=== PATIENT | female | born 1955 | race African-American/Black ===

== ENCOUNTER 2016-06-22 06:49 | Emergency (ER) | payer BC ==
[2016-06-22] MEDS ORDERED: IBUPROFEN 600 MG TABLET (FP) PO ONE ×2 (07:31→07:37)
--- NOTE | 2016-06-22 07:31 | PDOC ---
History of Present Illness - General Stated Complaint: RIGHT KNEE PAIN Time Seen by Provider: 06/22/16 07:20 History Source: Patient Exam Limitations: No Limitations - History of Present Illness Initial Comments: CHIEF COMPLAINT: 61 y/o afebrile female with PMH HTN, HLD, DM c/o atraumatic right knee pain since last night. HISTORY OF PRESENT ILLNESS: The patient states she isn't sure if she twisted her right knee incorrectly or what but since last night it's been painful to bend, especially painful going down stairs. She denies fall, trauma to knee, redness/warmth to affected knee, fever. REVIEW OF SYSTEMS: GENERAL/CONSTITUTIONAL: No fever/chills. No weakness. No weight change. GENITOURINARY: No dysuria, frequency, or change in urination. MUSCULOSKELETAL: +right knee pain. No neck or back pain. SKIN: No rash or easy bruising. NEUROLOGIC: No headache, vertigo, loss of consciousness, or loss of sensation. PHYSICAL EXAM: VITAL_SIGNS: within normal limits GENERAL_APPEARANCE: alert, cooperative, mild obvious discomfort. Pt ambulates with pain. MENTAL_STATUS: speech clear, oriented X 3, responds appropriately to questions. NEURO: motor intact and sensory intact in injured extremity. EXTREMITIES: Very minimal swelling to right medial knee joint with TTP of right medial joint line. No tibial plateau TTP. Negative Lachmann's test. No erythema, warmth or streaking to affected knee. SKIN: warm, dry, good color. Past History - Past Medical History Allergies/Adverse Reactions: Allergies Allergy/AdvReac Type Severity Reaction Status Date / Time metoprolol tartrate Allergy Verified 06/22/16 07:39 [From Lopressor] Penicillins Allergy Hives Verified 06/22/16 07:39 povidone-iodine Allergy Itching Verified 06/22/16 07:39 [From Betadine] soap [From Betadine] Allergy Itching Verified 06/22/16 07:39 Home Medications: Ambulatory Orders Aspirin [Baby Aspirin] 81 mg PO DAILY 08/24/11 Metformin HCl [Glucophage] 500 mg PO DAILY 08/24/11 Ramipril [Altace] 2.5 mg PO AM 08/24/11 Ascorbate Calcium [Vitamin C] 1,000 mg PO DAILY 12/19/14 Atorvastatin Ca [Lipitor -] 10 mg PO HS 12/19/14 Cholecalciferol (Vitamin D3) [Vitamin D-3] 1,000 unit PO DAILY 12/19/14 Cyanocobalamin [Vitamin B12 -] 3,000 mcg PO DAILY 12/19/14 Latanoprost 0.005% Eye Drops [Xalatan 0.005% Eye Drops -] 1 drop OP HS 12/19/14 Vitamin E 800 unit PO DAILY 12/19/14 Ibuprofen 600 mg PO Q6H #30 tablet 06/22/16 Anemia: No Asthma: No Cancer: No Cardiac Disorders: No CVA: No COPD: No CHF: No Dementia: No Diabetes: Yes GI Disorders: No Disorders: No HTN: Yes Hypercholesterolemia: Yes Liver Disease: No Seizures: No Thyroid Disease: No - Surgical History Abdominal Surgery: No Appendectomy: No Cardiac Surgery: Yes (cath) Cholecystectomy: No Lung Surgery: No Neurologic Surgery: No Orthopedic Surgery: No - Immunization History Immunization Up to Date: Yes - Psycho/Social/Smoking Cessation Hx Anxiety: No Suicidal Ideation: No Smoking Status: Yes Smoking History: Current every day smoker Number of Cigarettes Smoked Daily: 3 'Breaking Loose' booklet given: 11/23/11 Hx Alcohol Use: No Drug/Substance Use Hx: No Substance Use Type: None Medical Decision Making - Medical Decision Making A/P: 61 y/o female with right knee strain/meniscus tear. Plan is as follows: 1. PO Ibuprofen 2. GERALDINE bandage The patient was instructed to use GERALDINE bandage for comfort, apply ice as often as possible and take 600mg of Ibuprofen with food every 6 hours. Suggested she f/u with Dr. Quinn in 1 week if symptoms persist for MRI and possible physical therapy. Pt instructed to return to the ER with any worsening or concerning symptoms. The patient verbalizes understanding of all instructions, has no further questions and is awaiting discharge. *DC/Admit/Observation/Transfer Diagnosis at time of Disposition: Strain of right knee Qualifiers: Encounter type: initial encounter Qualified Code(s): S86.911A - Strain of unspecified muscle(s) and tendon(s) at lower leg level, right leg, initial encounter - Discharge Dispostion Disposition: HOME Condition at time of disposition: Stable - Referrals Referrals: Dennis Loza MD [Primary Care Provider] - Chang Quinn MD [Staff Physician] - 1 week - Patient Instructions Printed Discharge Instructions: DI for Knee Sprain, DI for Knee Pain, How To Perform RICE (Rest, Ice, Compress, Elevate) Additional Instructions: Discharge Instructions: -Take 600mg of Ibuprofen every 6 hours for pain with food -Follow RICE instructions and use GERALDINE bandage for comfort -Follow up with Dr. Quinn within 1 week -Return to the ER immediately with any worsening or concerning symptoms. - Post Discharge Activity Work/School Note: Back to Work
[2016-06-22 07:42] VITALS: BP 154/80; PULSE 62; TEMP 98.1; BMI 23.9
== END 2016-06-22 07:55 | disposition home or self-care (01) ==
LOC: JER 06:49
DX: S86.911A Strain of unspecified muscle(s) and tendon(s) at lower leg level, right leg, initial encounter (principal); I10 Essential (primary) hypertension; E11.9 Type 2 diabetes mellitus without complications; Z79.84 Long term (current) use of oral hypoglycemic drugs; E78.00 Pure hypercholesterolemia, unspecified; X58.XXXA Exposure to other specified factors, initial encounter; Y93.89 Activity, other specified; Y92.9 Unspecified place or not applicable
CPT/HCPCS: 99283-25

== ENCOUNTER 2017-03-02 17:49 | Emergency (ER) | payer BC ==
[2017-03-02 17:54] VITALS: BP 155/81; PULSE 78; TEMP 98.1; BMI 22.8
--- NOTE | 2017-03-02 19:03 | PDOC ---
History of Present Illness - General Chief Complaint: Injury Stated Complaint: ANKLE INJURY Time Seen by Provider: 03/02/17 18:48 History Source: Patient Exam Limitations: No Limitations - History of Present Illness Initial Comments: 03/02/17 19:20 states slid and twisted go Wednesday evening in an inversion fashion. States has been swollen and painful but not resolved using ice and elevation. Came for evaluation and x-ray. Denies numbness or tingling to toes, denies calf tenderness. 03/02/17 19:20 Occurred: reports: last week Severity: reports: mild, moderate Pain Location: reports: lower extremity (right ankle) Method of Injury: Yes: unknown Modifying Factors: improves with: cold therapy, pain medication Associated Symptoms (Fall): denies symptoms Past History - Travel Traveled outside of the country in the last 30 days: No Close contact w/someone who was outside of country & ill: No - Past Medical History Allergies/Adverse Reactions: Allergies Allergy/AdvReac Type Severity Reaction Status Date / Time metoprolol tartrate Allergy Verified 03/02/17 17:54 [From Lopressor] Penicillins Allergy Hives Verified 03/02/17 17:54 povidone-iodine Allergy Itching Verified 03/02/17 17:54 [From Betadine] soap [From Betadine] Allergy Itching Verified 03/02/17 17:54 Home Medications: Ambulatory Orders Aspirin [Baby Aspirin] 81 mg PO DAILY 08/24/11 Metformin HCl [Glucophage] 500 mg PO DAILY 08/24/11 Ramipril [Altace] 2.5 mg PO AM 08/24/11 Ascorbate Calcium [Vitamin C] 1,000 mg PO DAILY 12/19/14 Atorvastatin Ca [Lipitor -] 10 mg PO HS 12/19/14 Cholecalciferol (Vitamin D3) [Vitamin D-3] 1,000 unit PO DAILY 12/19/14 Cyanocobalamin [Vitamin B12 -] 3,000 mcg PO DAILY 12/19/14 Vitamin E 800 unit PO DAILY 12/19/14 Ibuprofen 600 mg PO Q6H #30 tablet 06/22/16 Anemia: No Asthma: No Cancer: No Cardiac Disorders: No CVA: No COPD: No CHF: No Dementia: No Diabetes: Yes GI Disorders: No Disorders: No HTN: Yes Hypercholesterolemia: Yes Liver Disease: No Seizures: No Thyroid Disease: No - Surgical History Abdominal Surgery: No Appendectomy: No Cardiac Surgery: Yes (cath) Cholecystectomy: No Lung Surgery: No Neurologic Surgery: No Orthopedic Surgery: No - Immunization History Immunization Up to Date: Yes - Suicide/Smoking/Psychosocial Hx Smoking Status: Yes Smoking History: Current every day smoker Have you smoked in the past 12 months: Yes Number of Cigarettes Smoked Daily: 5 Information on smoking cessation initiated: Yes 'Breaking Loose' booklet given: 03/02/17 Hx Alcohol Use: No Drug/Substance Use Hx: No Substance Use Type: None Trauma Specific PMHX - Complaint Specific PMHX Back Injury: No Neck Injury: No Review of Systems - Review of Systems Able to Perform ROS?: Yes Is the patient limited Bulgarian proficient: Yes Constitutional: Yes: Symptoms Reported, See HPI HEENTM: Yes: See HPI. No: Symptoms Reported Respiratory: No: Symptoms reported Cardiac (ROS): No: Symptoms Reported ABD/GI: No: Symptoms Reported Musculoskeletal: Yes: Symptoms Reported, See HPI, Joint Pain, Joint Swelling, Joint Stiffness Integumentary: Yes: Symptoms Reported, See HPI, Bruising Neurological: No: Symptoms reported (right ankle), Numbness All Other Systems: Reviewed and Negative *Physical Exam - Vital Signs Last Vital Signs Temp Pulse Resp BP Pulse Ox 98.1 F 78 18 155/81 99 03/02/17 17:51 03/02/17 17:51 03/02/17 17:51 03/02/17 17:51 03/02/17 17:51 - Physical Exam General Appearance: Yes: Nourished, Appropriately Dressed, Apparent Distress HEENT: positive: SANKET, Normal ENT Inspection, TMs Normal Neck: positive: Tender, Supple. negative: Lymphadenopathy (R) Respiratory/Chest: positive: Chest Tender, Lungs Clear Musculoskeletal: positive: Normal Inspection, CVA Tenderness Extremity: positive: Normal Capillary Refill, Normal Inspection. negative: Normal Range of Motion (difficult to flex and extend at ankle, has tenderness to medial and lateral malleolus, negative squeeze test. Neurovascular intact to foot but has significant swelling and ecchymoses noted to midfoot and extending past ankle joint.) Integumentary: positive: Swelling, Ecchymosis (patient taking aspirin), Bruising. negative: Normal Color Neurologic: positive: snath handle assembler II-XII NML intact, Fully Oriented, Alert, Normal Mood/ Affect, Normal Response, Motor Strength 5/5 ED Treatment Course - RADIOLOGY Radiology Studies Ordered: Category Date Time Status ANKLE-RIGHT [RAD] Stat Radiology 03/02/17 18:28 Taken Progress Note - Progress Note Progress Note: X-ray negative for fractures or dislocations. Patient refuses Aircast. Raymond wrap applied and provided crutches with 2 Percocet tablets for pain relief. Will follow-up with her orthopedist in one to 2 days for reevaluation. Medical Decision Making - Medical Decision Making 03/02/17 19:04 Ankle sprain, no evidence of fracture dislocation and x-ray. Patient takes aspirin therefore swelling and ecchymoses more severe. Raymond wrap applied, patient refuses Aircast or crutches. Follow-up with orthopedist *DC/Admit/Observation/Transfer Diagnosis at time of Disposition: Ankle sprain Qualifiers: Encounter type: initial encounter Involved ligament of ankle: other ligament Laterality: right Qualified Code(s): S93.491A - Sprain of other ligament of right ankle, initial encounter; S93.491A - Sprain of other ligament of right ankle, initial encounter - Discharge Dispostion Disposition: HOME Condition at time of disposition: Stable Admit: No - Referrals Referrals: Dennis Loza MD [Primary Care Provider] - Chang Quinn MD [Staff Physician] - - Patient Instructions Printed Discharge Instructions: DI for Ankle Sprain Additional Instructions: Rest, ice to area on and off for 15 minutes 4-6 times a day Avoid heavy lifting or exercise until pain and swelling is resolved or until further directed Keep area highly elevated to reduce swelling Use splints/Raymond wrap as directed Followup with orthopedist in one to 2 days if not improving, if significantly improved may wait one week for followup with orthopedist May use ibuprofen 2-200 mg tablets every 6 hours as needed for pain - Post Discharge Activity Forms/Work/School Notes: Back to Work
== END 2017-03-02 19:29 | disposition home or self-care (01) ==
LOC: JERFT 17:49
DX: S93.491A Sprain of other ligament of right ankle, initial encounter (principal); I10 Essential (primary) hypertension; E78.00 Pure hypercholesterolemia, unspecified; E11.9 Type 2 diabetes mellitus without complications; F17.210 Nicotine dependence, cigarettes, uncomplicated; Z79.84 Long term (current) use of oral hypoglycemic drugs; Z88.0 Allergy status to penicillin; Z88.8 Allergy status to other drugs, medicaments and biological substances; Z91.018 Allergy to other foods; Z79.82 Long term (current) use of aspirin; X50.0XXA Overexertion from strenuous movement or load, initial encounter; Y93.9 Activity, unspecified; Y92.9 Unspecified place or not applicable
CPT/HCPCS: 73610-TC-RT; 99281-25

== ENCOUNTER 2018-09-12 10:26 | Emergency (ER) | payer BC ==
[2018-09-12 10:41] VITALS: BP 154/79; PULSE 70; TEMP 97.8; BMI 24.0
--- NOTE | 2018-09-12 11:08 | PDOC ---
History of Present Illness - General Chief Complaint: Injury Stated Complaint: LT. BODY PAIN/ FALL Time Seen by Provider: 09/12/18 10:50 History Source: Patient Exam Limitations: No Limitations Past History - Travel Traveled outside of the country in the last 30 days: No Close contact w/someone who was outside of country & ill: No - Past Medical History Allergies/Adverse Reactions: Allergies Allergy/AdvReac Type Severity Reaction Status Date / Time metoprolol tartrate Allergy Verified 09/12/18 10:39 [From Lopressor] Penicillins Allergy Hives Verified 09/12/18 10:39 povidone-iodine Allergy Itching Verified 09/12/18 10:39 [From Betadine] soap [From Betadine] Allergy Itching Verified 09/12/18 10:39 Home Medications: Ambulatory Orders Aspirin [Baby Aspirin] 81 mg PO DAILY 08/24/11 Metformin HCl [Glucophage] 500 mg PO DAILY 08/24/11 Ramipril [Altace] 2.5 mg PO AM 08/24/11 Ascorbate Calcium [Vitamin C] 1,000 mg PO DAILY 12/19/14 Atorvastatin Ca [Lipitor -] 10 mg PO HS 12/19/14 Cholecalciferol (Vitamin D3) [Vitamin D-3] 1,000 unit PO DAILY 12/19/14 Cyanocobalamin [Vitamin B12 -] 3,000 mcg PO DAILY 12/19/14 Vitamin E 800 unit PO DAILY 12/19/14 Ibuprofen 600 mg PO Q6H #30 tablet 06/22/16 Anemia: No Asthma: No Cancer: No Cardiac Disorders: No CVA: No COPD: No CHF: No Dementia: No Diabetes: Yes GI Disorders: No Disorders: No HTN: Yes Hypercholesterolemia: Yes Liver Disease: No Seizures: No Thyroid Disease: No - Surgical History Abdominal Surgery: No Appendectomy: No Cardiac Surgery: Yes (cath) Cholecystectomy: No Lung Surgery: No Neurologic Surgery: No Orthopedic Surgery: No - Immunization History Immunization Up to Date: Yes - Suicide/Smoking/Psychosocial Hx Smoking Status: Yes Smoking History: Current every day smoker Have you smoked in the past 12 months: Yes Number of Cigarettes Smoked Daily: 5 Information on smoking cessation initiated: No 'Breaking Loose' booklet given: 03/02/17 Hx Alcohol Use: No Drug/Substance Use Hx: No Substance Use Type: None Review of Systems - Review of Systems Able to Perform ROS?: Yes Comments:: 09/12/18 11:15 CONSTITUTIONAL: Absent: fever, chills, diaphoresis, generalized weakness, malaise, loss of appetite HEENT: Absent: rhinorrhea, nasal congestion, throat pain, throat swelling, difficulty swallowing, mouth swelling, ear pain, eye pain, visual Changes CARDIOVASCULAR: Absent: chest pain, loss of consciousness, palpitations, irregular heart rate, peripheral edema RESPIRATORY: Absent: cough, shortness of breath, dyspnea with exertion, orthopnea, wheezing, stridor, hemoptysis GASTROINTESTINAL: Absent: abdominal pain, abdominal distension, nausea, vomiting, diarrhea, constipation, melena, hematochezia GENITOURINARY: Absent: dysuria, frequency, urgency, hesitancy, hematuria, flank pain, genital pain MUSCULOSKELETAL: Present: low back pain Absent: myalgia, arthralgia, joint swelling SKIN: Absent: rash, itching, pallor HEMATOLOGIC/IMMUNOLOGIC: Absent: easy bleeding, easy bruising, lymphadenopathy, frequent infections ENDOCRINE: Absent: unexplained weight gain, unexplained weight loss, heat intolerance, cold intolerance NEUROLOGIC: Absent: headache, focal weakness or paresthesias, dizziness, unsteady gait, seizure, mental status changes, bladder or bowel incontinence PSYCHIATRIC: Absent: anxiety, depression, suicidal or homicidal ideation, hallucinations. Is the patient limited Bahraini proficient: No *Physical Exam - Vital Signs Last Vital Signs Temp Pulse Resp BP Pulse Ox 97.8 F 70 17 154/79 99 09/12/18 10:39 09/12/18 10:39 09/12/18 10:39 09/12/18 10:39 09/12/18 10:39 - Physical Exam Comments: 09/12/18 11:25 GENERAL: Well developed, well nourished. Awake and alert. No acute distress. MUSCULOSKELETAL Point tenderness with minimal swelling over S1 with associated pain radiating into the L gluteus halie. Normal range of motion at all joints. No CVA tenderness. EXTREMITIES: No cyanosis. No clubbing. No edema. No calf tenderness. SKIN: Warm and dry. Normal capillary refill. No rashes. No jaundice. NEUROLOGICAL: Alert, awake, appropriate. Cranial nerves 2-12 intact. No deficits to light touch and temperature in face, upper extremities and lower extremities. No motor deficits in the in face, upper extremities and lower extremities. Normoreflexic in the upper and lower extremities. Normal speech. Toes are down- going bilaterally. Gait is normal without ataxia. PSYCHIATRIC: Cooperative. Good eye contact. Appropriate mood and affect. Medical Decision Making - Medical Decision Making 09/12/18 11:26 The patient is a 63-year-old female with past medical history of night terrors, hypertension, on aspirin who presents to the ER today for low back pain status post fall out of bed this morning. Patient states that she was having a nightmare where she was being attacked by a snow leopard. She states that she jumped in her drain and she believes that's why she fell out of the bed. She states that she currently has pain over her sacrum and that hurts when she sits down. Denies numbness and tingling down the extremity, weakness to the left extremity, saddle anesthesia, bladder/bowel incontinence, LOC and head trauma. A/P: Sacral pain On exam point tenderness to S1 at the midline Pain radiates to the left gluteus halie without radiating down the left leg. We'll rule out fracture at this time. Toradol given for pain Reevaluate 09/12/18 14:27 No fractures of the sacrum on x-ray Head CT negative for subdural hematoma Pain relief with Toradol DC home with PCP follow up I discussed the physical exam findings, ancillary test results and final diagnoses with the patient. I answered all of the patient's questions. The patient was satisfied with the care received and felt comfortable with the discharge plan and treatment plan. The Patient agrees to follow up with the primary care physician/specialist within 24-72 hours. Return precautions were given. *DC/Admit/Observation/Transfer Diagnosis at time of Disposition: Low back pain Qualifiers: Chronicity: acute Back pain laterality: midline Sciatica presence: without sciatica Qualified Code(s): M54.5 - Low back pain - Discharge Dispostion Disposition: HOME Condition at time of disposition: Stable Decision to Admit order: No - Referrals Referrals: Chang Quinn MD [Staff Physician] - - Patient Instructions Printed Discharge Instructions: DI for Low Back Pain Additional Instructions: You were evaluated for your back pain today You may take Motrin 600 mg every 6 hours starting tonight before bed as needed for pain. Your x-rays were negative for broken bones. Your head CT was normal. If you have pain while sitting you may purchase a donut pillow at the pharmacy to offset the weight Please follow up with orthopedics if her symptoms do not improve within 5-7 days. Return to the ER for worsening pain, numbness and tingling down the extremities , numbness in her groin, loss of bladder or bowel function, or if you have any changes in your symptoms. - Post Discharge Activity Forms/Work/School Notes: Back to Work
[2018-09-12] MEDS ORDERED: KETOROLAC TROMETHAMINE 60 MG/2 ML VIAL IM ONE (11:15)
[2018-09-12] MEDS ORDERED: KETOROLAC TROMETHAMINE 60 MG/2 ML VIAL ONE (11:26)
== END 2018-09-12 16:30 | disposition home or self-care (01) ==
LOC: JER 10:26
PROC: 3E0233Z Introduction of Anti-inflammatory into Muscle, Percutaneous Approach (ICD-10-PCS; principal; 2018-09-12)
DX: M54.5 Low back pain (principal); W06.XXXA Fall from bed, initial encounter; Y93.84 Activity, sleeping; Y92.032 Bedroom in apartment as the place of occurrence of the external cause; Y99.8 Other external cause status; F51.4 Sleep terrors [night terrors]; I10 Essential (primary) hypertension; E78.00 Pure hypercholesterolemia, unspecified; E11.9 Type 2 diabetes mellitus without complications; Z79.84 Long term (current) use of oral hypoglycemic drugs; Z79.82 Long term (current) use of aspirin
CPT/HCPCS: 70450-TC; 72100-TC-FY; 73523-TC-FY; 99282-25

== ENCOUNTER 2019-02-20 13:44 | Emergency (ER) | payer BC ==
[2019-02-20 13:53] VITALS: BP 159/91; PULSE 66; TEMP 98; BMI 23.9
--- NOTE | 2019-02-20 13:55 | PDOC ---
Rapid Medical Evaluation Chief Complaint: Edema Time Seen by Provider: 02/20/19 13:48 Medical Evaluation: Allergies Allergy/AdvReac Type Severity Reaction Status Date / Time metoprolol tartrate Allergy Verified 09/12/18 10:39 [From Lopressor] Penicillins Allergy Hives Verified 09/12/18 10:39 povidone-iodine Allergy Itching Verified 09/12/18 10:39 [From Betadine] soap [From Betadine] Allergy Itching Verified 09/12/18 10:39 02/20/19 13:49 CC: right hand pain PE: swelling and tenderness to palmar surface or right hand over 4th and 5th metacarpals Orders: xray, motrin Pt will proceed to ER for further evaluation. Discharge Disposition - Diagnosis Right hand pain - Referrals - Patient Instructions - Post Discharge Activity
--- NOTE | 2019-02-20 14:15 | PDOC ---
History of Present Illness - General Chief Complaint: Edema Stated Complaint: swollen rt hand Time Seen by Provider: 02/20/19 13:48 - History of Present Illness Initial Comments: 02/20/19 14:10 64 y/o F w/PMH f DM, HTN Lipids presents for evaluation of L wrist swelling and tenderness x2 days Past History - Past Medical History Allergies/Adverse Reactions: Allergies Allergy/AdvReac Type Severity Reaction Status Date / Time metoprolol tartrate Allergy Verified 02/20/19 13:54 [From Lopressor] Penicillins Allergy Hives Verified 02/20/19 13:54 povidone-iodine Allergy Itching Verified 02/20/19 13:54 [From Betadine] soap [From Betadine] Allergy Itching Verified 02/20/19 13:54 Home Medications: Ambulatory Orders Aspirin [Baby Aspirin] 81 mg PO DAILY 08/24/11 Metformin HCl [Glucophage] 500 mg PO DAILY 08/24/11 Ramipril [Altace] 2.5 mg PO AM 08/24/11 Ascorbate Calcium [Vitamin C] 1,000 mg PO DAILY 12/19/14 Atorvastatin Ca [Lipitor -] 10 mg PO HS 12/19/14 Cholecalciferol (Vitamin D3) [Vitamin D-3] 1,000 unit PO DAILY 12/19/14 Cyanocobalamin [Vitamin B12 -] 3,000 mcg PO DAILY 12/19/14 Vitamin E 800 unit PO DAILY 12/19/14 Ibuprofen 600 mg PO Q6H #30 tablet 06/22/16 Anemia: No Asthma: No Cancer: No Cardiac Disorders: No CVA: No COPD: No CHF: No Dementia: No Diabetes: Yes GI Disorders: No Disorders: No HTN: Yes Hypercholesterolemia: Yes Liver Disease: No Seizures: No Thyroid Disease: No - Surgical History Abdominal Surgery: No Appendectomy: No Cardiac Surgery: Yes (cath) Cholecystectomy: No Lung Surgery: No Neurologic Surgery: No Orthopedic Surgery: No - Immunization History Immunization Up to Date: Yes - Psycho Social/Smoking Cessation Hx Smoking Status: Yes Smoking History: Former smoker Have you smoked in the past 12 months: Yes Number of Cigarettes Smoked Daily: 5 Information on smoking cessation initiated: Yes 'Breaking Loose' booklet given: 03/02/17 Hx Alcohol Use: No Drug/Substance Use Hx: No Substance Use Type: None Review of Systems - Review of Systems Constitutional: No: Fever Musculoskeletal: Yes: Joint Pain *Physical Exam - Vital Signs Last Vital Signs Temp Pulse Resp BP Pulse Ox 98 F 66 16 159/91 100 02/20/19 13:48 02/20/19 13:48 02/20/19 13:48 02/20/19 13:48 02/20/19 13:48 - Physical Exam Comments: 02/20/19 14:11 R wrist skin color and temperature are normal. There is full no painful ROM. There is an area of tenderness about the volar aspect of the palmar surface of the wrist. There is a fullness in that area without fluctuance, overlying warmth , induration, or sensitivity. There are not gross sensory or motor deficits NVID Medical Decision Making - Medical Decision Making 02/20/19 14:13 The fullness described has the feel of a lipoma. No emergence intervention will refer to hand Discharge - Discharge Information Problems reviewed: Yes Clinical Impression/Diagnosis: Right hand pain Condition: Stable Disposition: HOME - Admission No - Follow up/Referral Referrals: Earle Phan MD [Staff Physician] - - Patient Discharge Instructions Additional Instructions: Without fail, please follow up with Dr Phan from hand surgery for further evaluation and treatment options in 1-2 days. Return to the Emergency Room for worsening symptoms. - Post Discharge Activity
[2019-02-20] MEDS ORDERED: IBUPROFEN 600 MG TABLET (FP) PO ONE (14:16)
[2019-02-20] MEDS: IBUPROFEN 600 MG TABLET (FP) PO ONE ×2 (14:17→14:18)
== END 2019-02-20 14:34 | disposition home or self-care (01) ==
LOC: JERFT 13:44
DX: M79.641 Pain in right hand (principal); I10 Essential (primary) hypertension; E78.5 Hyperlipidemia, unspecified; E78.00 Pure hypercholesterolemia, unspecified; E11.9 Type 2 diabetes mellitus without complications; Z79.84 Long term (current) use of oral hypoglycemic drugs; Z88.0 Allergy status to penicillin; Z88.8 Allergy status to other drugs, medicaments and biological substances
CPT/HCPCS: 99281-25

== ENCOUNTER 2019-07-04 04:57 | Day surgery (SDC) | payer BC ==
[2019-06-29 15:49] VITALS: BMI 23.9
--- NOTE | 2019-07-04 07:54 | HP ---
History & Physical Update - Physical Physical: No Change - Assessment Assessment: No Change - Plan Plan: No Change (H&P reviwed , no changes , for cystorectocele repair , sling procedure)
[2019-07-04] MEDS ORDERED: VASOPRESSIN 20 UNITS/ML VIAL IV ONE (09:58)
[2019-07-04] MEDS ORDERED: MIDAZOLAM HCL 2 MG/2 ML SINGLE DOSE VIAL ONE (10:02)
[2019-07-04] MEDS ORDERED: PROPOFOL 20 ML ONE (10:02)
[2019-07-04] MEDS ORDERED: CLINDAMYCIN PHOSPHATE 600 MG/4 ML VIAL ONE (10:20)
[2019-07-04] MEDS ORDERED: DEXAMETHASONE SOD PHOSPHATE 4 MG/1 ML VIAL ONE (10:32)
[2019-07-04] MEDS ORDERED: CLINDAMYCIN 600 MG PREMIX BAG IVPB ONE (10:37)
[2019-07-04] MEDS ORDERED: LIDOCAINE HCL 1%, 10 MG/ML (20ML VIAL) ONE (10:54)
[2019-07-04] MEDS ORDERED: LIDOCAINE 1%/EPI 1:100000 (20 ML MULTI DOSE VIAL) IJ ONE (11:03)
--- NOTE | 2019-07-04 11:11 | OP ---
Operative Note - Note: Operative Date: 07/04/19 Pre-Operative Diagnosis: Urinary incontinence Post-Operative Diagnosis: Same as Pre-op Surgeon: Smooth Martinez MD. Anesthesia: General Operative Report Dictated: Yes
[2019-07-04] MEDS ORDERED: metroNIDAZOLE 0.75% VAGINAL GEL 70 GM TUBE VG ONE (11:21)
[2019-07-04] MEDS ORDERED: ACETAMINOPHEN INJECTION 100 ML IVPB ONE (11:39)
[2019-07-04] MEDS ORDERED: ACETAMINOPHEN 1000 MG/100 ML VIAL (NON FORMULARY) IVPB ONE ×2 (11:40→11:42)
[2019-07-04] MEDS ORDERED: ONDANSETRON 4 MG/2 ML VIAL IVPUSH PRN ×2 (11:41→12:27)
[2019-07-04] MEDS ORDERED: oxyCODONE HCL 5 MG TABLET PO PRN ×2 (11:41→12:27)
--- NOTE | 2019-07-04 12:26 | OP ---
Operative Note - Note: Operative Date: 07/04/19 Pre-Operative Diagnosis: cystocele, rectocele , stress incontience Operation: cystorectocele repair , pernioplasty Findings: cystorectocele. gaaping vaginal interetous Post-Operative Diagnosis: Same as Pre-op Surgeon: Fortunato Angel Anesthesiologist/[employer]: Susie Romero Anesthesia: General Specimens Removed: ant. and post. vaginal mucosa Estimated Blood Loss (mls): 50 Drains & Tubes with Location: [place]. vaginal packing Blood Volume Replaced (mls): 0 Operative Report Dictated: Yes
[2019-07-04] MEDS ORDERED: IBUPROFEN 600 MG TABLET (FP) PO PRN (12:27)
[2019-07-04] MEDS ORDERED: IBUPROFEN 800 MG/8 ML IJ IVPB PRN (12:27)
[2019-07-04] MEDS ORDERED: ELECTROLYTE-148 SOLN 1,000 ML IV SCH (12:30)
[2019-07-04] MEDS ORDERED: IBUPROFEN 800 MG/8 ML IJ IVPB ONE ×2 (13:20→13:32)
--- NOTE | 2019-07-04 13:20 | PN ---
Progress Note (short form) - Note Progress Note: was called to see patient in recovery room , post op , cystorectocelerepair, pernioplasty, suburethral sling . c/o excess post op pain , abdomen and suprapubic pain ,not relived with pain meds nurse noted abdominal distension . no active vaginal bleeding , has packing in vagina , [place] cath clear urine 300cc Last Vital Signs Temp Pulse Resp BP Pulse Ox 97.7 F 63 18 180/91 H 100 07/04/19 11:30 07/04/19 12:15 07/04/19 12:15 07/04/19 12:15 07/04/19 12:15 c/o of pain abdomen soft, mild distension, no rebound , no rigidity no cva vagina packing stain with dark blood , no vaginal bleeding seen severe post op pain etiology not known . will get CT Scan of pelvic and abdomen , revaluate
[2019-07-04 13:39] LABS: BASO % 1.2 % (0-2.0); EOS % 0.3 % (0-4.5); HEMATOCRIT 41.4 % (32.4-45.2); HEMOGLOBIN 13.9 GM/dL (10.7-15.3); MCH 31.4 pg (25.7-33.7); MCHC 33.6 g/dl (32.0-36.0); MEAN CELL VOLUME 93.6 fl (80-96); MEAN PLT VOLUME 7.5 fl (7.5-11.1); MONO % 2.5 % (3.8-10.2); PLATELET COUNT 379 K/MM3 (134-434); RBC 4.42 M/mm3 (3.60-5.2); RDW 14.1 % (11.6-15.6); WHITE BLOOD COUNT 10.9 K/mm3 (4.0-10.0)
[2019-07-04] MEDS ORDERED: ONDANSETRON 4 MG/2 ML VIAL IVPUSH ONE (13:45)
[2019-07-04] MEDS ORDERED: HYDROmorphone HCl 2 MG/ML VIAL IVPUSH ONE ×2 (13:46→14:00)
[2019-07-04] MEDS ORDERED: ONDANSETRON 4 MG/2 ML VIAL ONE (13:46)
[2019-07-04] MEDS ORDERED: HYDROmorphone HCl 2 MG/ML VIAL ONE (14:00)
[2019-07-04 14:46] LABS: ALBUMIN 3.6 g/dl (3.4-5.0); BLOOD UREA NITROGEN 7.3 mg/dL (7-18); CALCIUM 9.1 mg/dL (8.5-10.1); CREATININE 0.6 mg/dL (0.55-1.3); POTASSIUM 4.4 mmol/L (3.5-5.1)
[2019-07-04 14:47] LABS: BILIRUBIN,TOTAL 0.4 mg/dL (0.2-1); TOT PROT 6.9 g/dl (6.4-8.2)
[2019-07-04] MEDS ORDERED: HYDROmorphone HCl 2 MG/ML VIAL IVPB PRN (15:01)
[2019-07-04] MEDS ORDERED: ATORVASTATIN CA 10 MG TABLET (FP) PO SCH (15:45)
[2019-07-04] MEDS ORDERED: LATANOPROST 0.005% OPHTH SOLN 2.5ML BOTTLE OD SCH (22:00)
--- NOTE | 2019-07-04 22:58 | OP ---
DATE OF OPERATION: 07/04/2019 PREOPERATIVE DIAGNOSIS: Urinary incontinence. POSTOPERATIVE DIAGNOSIS: Urinary incontinence. PROCEDURE: Midurethral sling placement. Please refer to Dr. Angel's portion of the [employer] component of this procedure. BRIEF HISTORY: A 64-year-old female to undergo cystocele, rectocele repair with unaware incontinence. Also some mild stress urinary incontinence. Preoperative evaluation determined and confirmed the above. It is recommended for midurethral sling at the time of [employer] surgery. Risks and benefits of treatment, alternative treatments discussed in detail. All questions were answered. Risk of reversion, reoperation, bleeding, infection, and persistent incontinence were all discussed with the patient. BRIEF OPERATIVE NOTE: The patient is brought in the operating room. Dr. Angel performed the early portion of his procedure. At this time, a timeout was performed, and I entered the room. A Cantrell catheter was placed to suction drainage. The area approximately 1 cm proximal to the meatus was anesthetized with 1% lidocaine with epinephrine. A small amount of vasopressor was also injected. At this time, using a 15-blade scalpel, anterior vaginal wall was incised. Using sharp dissection, the anterior vaginal wall was dissected free from the periurethral tissue. Space was created both bilaterally on periurethral tissue to expose the obturator foramen. This was accomplished bilaterally without difficulty. At this time, an Altis sling was placed through first the right foramen and then using careful attention to be sure the sling was not kinked or bunched, the contralateral side was placed in the position to the obturator foramen. It was cinched up and using a tonsil it was snug in that tight position. bleeding. The incision was closed using a running 2-0 Vicryl. A Cantrell was left to straight drainage. The Dr. Angel was to finish the latter component of this procedure. Please refer to his note again. CHING CLEVELAND M.D. [id number]
[2019-07-05 08:58] VITALS: BP 169/74; PULSE 70; TEMP 97.7
[2019-07-05] MEDS ORDERED: RAMIPRIL 2.5 MG CAPSULE (FP) PO SCH (10:00)
--- NOTE | 2019-07-06 16:26 | PN ---
Progress Note (short form) - Note Progress Note: 07/05/19 845 am sitting on chair, no c/o , huddleston clear urine , no vaginal bleeding, passing gas , no pain Last Vital Signs Temp Pulse Resp BP Pulse Ox 97.7 F 70 18 169/74 100 07/05/19 08:57 07/05/19 08:57 07/05/19 08:57 07/05/19 08:57 07/04/19 21:00 CBC, BMP 07/04/19 13:15 07/04/19 13:15 abdomen soft, no cva , non tender no calf tenderness lochia no bleeding plan d/c huddleston , if voids d/c home vaginal packing removed
--- NOTE | 2019-07-06 17:59 | OP ---
DATE OF OPERATION: 07/04/2019 PREOPERATIVE DIAGNOSIS: Cystocele, rectocele, and urinary incontinence. POSTOPERATIVE DIAGNOSIS: Cystocele, rectocele, and urinary incontinence. PROCEDURE: For Dr. Angel; cystocele repair, rectocele repair, and perineoplasty. Dr. Martinez did suburethral sling procedure. OPERATION: Patient was taken to the operating room under general anesthesia. In dorsal lithotomy position, examination under anesthesia revealed external genitalia to be normal. Vagina was gaping. There was an enlarged cystocele protruding through the vaginal introitus, and there was also a rectocele. The cervix was normal grossly. Uterus was normal size. Adnexa, no masses were palpated. Then anterior and posterior vaginal mucosa were infiltrated with a dilute solution of vasopressin and then anterior vaginal mucosa was opened in midline and then undermined and then cut in the midline. Then bladder was from the vaginal mucosa with sharp and blunt dissection. After complete dissection, with 3-0 Vicryl suture, the cystocele was reduced in the pursestring suture. Then several mattress sutures were placed over the bladder wall for reinforcement. Excess vaginal mucosa was cut, and the vaginal mucosa was repaired with interrupted suture of the 3-[address] Martinez did suburethral sling, which he will dictate his operative report. Then after completion of his procedure then posterior vaginal mucosa was infiltrated with vasopressin and then posterior vaginal mucosa was cut with a knife and then vaginal mucosa was grasped with an Allis clamp, and the posterior vaginal mucosa was from the rectum. Then the cystocele was repaired with interrupted mattress suture of 2-0 Vicryl and then reinforced with 3-0 Vicryl interrupted suture. Then perineum muscle was dissected and then brought together with interrupted suture of 0 Vicryl and then the posterior vaginal mucosa and the perineum was repaired in an episiotomy-like fashion with 2-0 Vicryl and 3-0 Vicryl. No active bleeding was seen. Cantrell catheter was inserted and was clear urine. Then the vagina was packed with plain gauze and MetroGel. Patient tolerated the procedure well. Left the OR in good condition. Rectal exam showed no defect or no . Dionne [id number]
--- NOTE | 2019-07-06 18:46 | PATH ---
Surgical Pathology Report Patient Name: MIKY AUGUSTIN Med. Rec. #: [id number] /Age/Gender: 1955 (Age: 64) / F Account: [id number] Location: AMBULATORY SURG Taken: 07/04/2019 Received: 07/04/2019 Reported: 07/06/2019 Physicians: Fortunato Angel M.D. Specimen(s) Received A: ANTERIOR VAGINAL MUCOSA B: POSTERIOR VAGINAL MUCOSA Clinical History Urinary incontinence Final Diagnosis A. ANTERIOR VAGINAL MUCOSA, EXCISION: PORTION OF SQUAMOUS MUCOSA WITH MILD CHRONIC INFLAMMATION. Comment: Immunohistochemical stained slides (block A1) demonstrate the squamous epithelium is positive for p40 in the basal layer, while negative for Melan A and HMB 45. No evidence of melanocytic proliferation. Immunohistochemical stains performed at [place], [place] ([id number]) and interpreted at [facility]. Positive and negative controls (internal if applicable) show appropriate results. B. POSTERIOR VAGINAL MUCOSA, EXCISION: PORTION OF SQUAMOUS MUCOSA WITH CHRONIC INFLAMMATION. Electronically Signed Ramon Pat M.D. Gross Description A. Received in formalin labeled "anterior vaginal mucosa," are 3 pink-mena, unoriented portion of mucosal tissue ranging from 0.7 x 0.5 x 0.3 cm to 2.5 x 0.5 x 0.4 cm. No discrete lesions are identified. 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 B. Received in formalin labeled "posterior vaginal mucosa," is a 3.0 x 0.5 cm mena-brown, unoriented portion of skin. No discrete lesions are identified. 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 /07/04/2019 [facility]/07/04/2019
== END 2019-07-05 12:40 | disposition home or self-care (01) ==
LOC: JASU-SURG 04:57 → JASUSAT 04:57 → J3W 15:38 → JASUSAT 07-05 12:40
PROVIDERS: ATTEND Obstetrics & Gynecology
PROC: 0KQM0ZZ Repair Perineum Muscle, Open Approach (ICD-10-PCS; 2019-07-04)
PROC: 0TSD0ZZ Reposition Urethra, Open Approach (ICD-10-PCS; 2019-07-04)
PROC: 0JQC0ZZ Repair Pelvic Region Subcutaneous Tissue and Fascia, Open Approach (ICD-10-PCS; principal; 2019-07-04 10:07)
PROC: 0JQC0ZZ Repair Pelvic Region Subcutaneous Tissue and Fascia, Open Approach (ICD-10-PCS; 2019-07-04 10:07)
DX: N81.10 Cystocele, unspecified (principal); N81.6 Rectocele; N39.498 Other specified urinary incontinence
CPT/HCPCS: 57260; 57288; C1771; 36415; 74176-TC; 80053; 82962; 85025; 94760; J0131